=== PATIENT | female | born 1995 | race Caucasian/White ===

== ENCOUNTER 2018-10-01 12:24 | Emergency (ER) | payer BC, MEDICAID, OTHER ==
--- NOTE | 2018-10-01 12:31 | EDM.PDOC ---
ED HPI GENERAL MEDICAL PROBLEM - General Chief Complaint: Genitourinary Problem Stated Complaint: POSSIBLE OVARIAN CYST?? Time Seen by Provider: 10/01/18 12:25 Source of Information: Reports: Patient History Limitations: Reports: No Limitations - History of Present Illness INITIAL COMMENTS - FREE TEXT/NARRATIVE: 23 YO WF presents to ER with a 4 day history of left lower quadrant pain with radiation to suprapubic and now right lower quadrant which began today. Pt thinks she has a ruptured ovarian cyst. Pt reports she is currently on oral contraceptives but stopped for a few days and had a menstrual period. Pt reports she is sexually active but denies any vaginal discharge or discomfort with intercourse. Pt denies dysuria but reports increased urine frequency without urgency. Pt has had UTIs in the past but states this feels different. Pt reports she has had a good appetite with some nausea without vomiting. Pt denies diarrhea or constipation. Pt reports no fever/chills and no back pain. Pt reports she doesn't want blood work at this time and would like to follow up in clinic for pelvic U/S tomorrow with Dr Lissy Suarez. Onset Date: 09/28/18 Duration: Day(s): (4) Location: Reports: Pelvis Quality: Reports: Pressure, Stabbing Severity: Mild Improves with: Reports: Rest Worsens with: Reports: Movement Associated Symptoms: Reports: Nausea/Vomiting. Denies: Chest Pain, Fever/Chills , Rash, Shortness of Breath, Weakness - Related Data Allergies Allergy/AdvReac Type Severity Reaction Status Date / Time amoxicillin Allergy Hives Verified 10/01/18 12:41 Home Meds: Home Meds Norgestimate-Ethinyl Estradiol [[place]-Linyah 28 Tablet] 1 tab PO DAILY 10/01/18 [ History] ED ROS GENERAL - Review of Systems Review Of Systems: See Below Constitutional: Reports: No Symptoms HEENT: Reports: No Symptoms Respiratory: Reports: No Symptoms Cardiovascular: Reports: No Symptoms Endocrine: Reports: No Symptoms : Reports: Frequency, Irregular Menses. Denies: Dysuria, Flank Pain, Hematuria, Urgency Musculoskeletal: Reports: No Symptoms Skin: Reports: No Symptoms Neurological: Reports: No Symptoms Psychiatric: Reports: No Symptoms Hematologic/Lymphatic: Reports: No Symptoms Immunologic: Reports: No Symptoms ED EXAM, RENAL/ - Physical Exam Exam: See Below Exam Limited By: No Limitations General Appearance: Alert, WD/WN, No Apparent Distress Throat/Mouth: Normal Inspection, Normal Lips, Normal Teeth, Normal Gums, Normal Oropharynx, Normal Voice, No Airway Compromise Head: Atraumatic, Normocephalic Neck: Normal Inspection, Supple, Non-Tender, Full Range of Motion Respiratory/Chest: No Respiratory Distress, Lungs Clear, Normal Breath Sounds, No Accessory Muscle Use, Chest Non-Tender Cardiovascular: Normal Peripheral Pulses, Regular Rate, Rhythm, No Edema, No Gallop, No JVD, No Murmur, No Rub GI/Abdominal: Normal Bowel Sounds, Soft, No Organomegaly, No Distention, No Abnormal Bruit, No Mass, Tender (lower abdomen- LLQ>RLQ) (Female) Exam: Deferred (patient request) Back Exam: Normal Inspection, Full Range of Motion, NT Extremities: Normal Inspection, Normal Range of Motion, Non-Tender, Normal Capillary Refill, No Pedal Edema Neurological: Alert, Oriented, CN II-XII Intact, Normal Cognition, Normal Gait, Normal Reflexes, No Motor/Sensory Deficits Psychiatric: Normal Affect, Normal Mood Skin Exam: Warm, Dry, Intact, Normal Color, No Rash Lymphatic: No Adenopathy Course - Vital Signs Last Recorded V/S: Last Vital Signs Temp 36.6 C 10/01/18 12:41 Pulse 92 10/01/18 12:41 Resp 16 10/01/18 12:41 BP 133/90 10/01/18 12:41 Pulse Ox 97 10/01/18 12:41 - Orders/Labs/Meds Orders: Active Orders 24 hr Category Date Time Status UA W/MICROSCOPIC [URIN] Stat Lab 10/01/18 12:30 Ordered Labs: Laboratory Tests 10/01/18 10/01/18 Range/Units 12:30 12:30 Urine Color Yellow (YELLOW) Urine Appearance Clear (CLEAR) Urine pH 7.0 (5.0-9.0) Ur Specific [place] 1.010 (1.005-1.030) Urine Protein Negative (NEGATIVE) mg/dL Urine Glucose (UA) Negative (NEGATIVE) mg/dL Urine Ketones Negative (NEGATIVE) mg/dL Urine Occult Blood Trace-intact H (NEGATIVE) Urine Nitrite Negative (NEGATIVE) Urine Bilirubin Negative (NEGATIVE) Urine Urobilinogen 0.2 (0.2-1.0) E.U./dL Ur Leukocyte Esterase Negative (NEGATIVE) Urine HCG, Qual Negative (NEGATIVE) Meds: Medications Discontinued Medications Generic Name Dose Route Start Last Admin Trade Name Kory PRN Reason Stop Dose Admin Ibuprofen 800 mg 10/01/18 12:45 Motrin PO 10/01/18 12:46 ONETIME ONE Departure - Departure Time of Disposition: 13:01 Disposition: Home, Self-Care 01 Condition: Good Clinical Impression: Pelvic pain - Discharge Information Instructions: Pelvic Pain, Female, [id number] Forms: ED Department Discharge Additional Instructions: 1. discharge home 2. discussed management with patient- motrin 600mg PO Q^ x 5 days, follow up in clinic for pelvic ultrasound tomorrow, pt to return to ER for worsening symptoms 3. offered pelvic exam, blood work and imaging if abnormal labs- Pt would like to defer and follow up in clinic for further evaluation and treatment - My Orders Last 24 Hours: My Active Orders 10/01/18 12:30 UA W/MICROSCOPIC [URIN] Stat - Assessment/Plan Last 24 Hours: My Active Orders 10/01/18 12:30 UA W/MICROSCOPIC [URIN] Stat Assessment:: 1. Pelvic pain- suspect ruptured ovarian cyst Plan: 1. discharge home 2. discussed management with patient- motrin 600mg PO Q^ x 5 days, follow up in clinic for pelvic ultrasound tomorrow, pt to return to ER for worsening symptoms 3. offered pelvic exam, blood work and imaging if abnormal labs- Pt would like to defer and follow up in clinic for further evaluation and treatment
[2018-10-01] MEDS: Ibuprofen 400 MG Tab PO ONE (12:54)
== END 2018-10-01 13:05 | disposition home or self-care (01) ==
LOC: KA.ED 12:24
DX: R10.2 Pelvic and perineal pain (principal); Z88.1 Allergy status to other antibiotic agents
CPT/HCPCS: 81001; 81025; 99284; A9270-GY

== ENCOUNTER 2019-08-01 21:00 | Emergency (ER) | payer BC, MEDICAID ==
[2019-08-01] MEDS ORDERED: predniSONE 20 MG Tab PO ONE (21:53)
[2019-08-01] MEDS ORDERED: predniSONE 20 MG Tab ONE (21:54)
--- NOTE | 2019-08-01 22:00 | EDM.PDOC ---
ED HPI GENERAL MEDICAL PROBLEM - General Chief Complaint: General Stated Complaint: allergic reaction Time Seen by Provider: 08/01/19 21:35 Source of Information: Reports: Patient History Limitations: Reports: No Limitations - History of Present Illness INITIAL COMMENTS - FREE TEXT/NARRATIVE: Patient presents with itchy rash on head and neck for 5 days. It has been stable without worsening or progression. No tongue or throat swelling or dyspnea. 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 She has started wearing gloves and trying to reduce exposure to it. Her ears are the worst and she has tried Xyzal at home once or twice at night but it isn't helping through the day. - Related Data Allergies Allergy/AdvReac Type Severity Reaction Status Date / Time amoxicillin Allergy Hives Verified 08/01/19 21:21 Home Meds: Home Meds norgestimate-ethinyl estradioL [[place]-Linyah 28 Tablet] 1 tab PO DAILY 10/01/18 [ History] Past Medical History Musculoskeletal History: Reports: Other (See Below) Other Musculoskeletal History: torn MCL/PCL no surgery Neurological History: Reports: Concussion, Other (See Below) Other Neuro History: concussions x 4. - Infectious Disease History Infectious Disease History: Reports: Chicken Pox - Past Surgical History Head Surgeries/Procedures: Reports: None Neurological Surgical History: Reports: None Musculoskeletal Surgical History: Reports: None Social & Family History - Family History Family Medical History: Noncontributory - Tobacco Use Smoking Status *Q: Never Smoker Second Hand Smoke Exposure: No ED ROS GENERAL - Review of Systems Review Of Systems: See Below Constitutional: Denies: Fever, Chills, Malaise, Weakness HEENT: Denies: Ear Pain, Throat Pain, Throat Swelling, Vision Change Respiratory: Denies: Shortness of Breath, Cough Cardiovascular: Denies: Chest Pain, Lightheadedness, Syncope Endocrine: Denies: Fatigue GI/Abdominal: Denies: Abdominal Pain, Vomiting : Denies: Dysuria, Flank Pain Musculoskeletal: Denies: Neck Pain, Shoulder Pain, Arm Pain, Back Pain, Hand Pain Skin: Denies: Cyanosis, Jaundice, Mottled, Pallor, Diaphoresis Neurological: Denies: Confusion, Dizziness, Headache, Seizure, Syncope, Trouble Speaking, Difficulty Walking Psychiatric: Denies: Agitation, Anxiety, Confusion ED EXAM, GENERAL - Physical Exam Exam: See Below Exam Limited By: No Limitations General Appearance: Alert, WD/WN, No Apparent Distress Eye Exam: Bilateral Eye: EOMI, Normal Inspection, PERRL Ears: Normal Canal, Hearing Grossly Normal, Normal TMs Ear Exam: Bilateral Ear: Erythema (external ear), Swelling (external ear) Nose: Normal Inspection, No Blood Throat/Mouth: Normal Inspection, Normal Lips, Normal Teeth, Normal Gums, Normal Oropharynx, Normal Voice, No Airway Compromise Head: Atraumatic, Normocephalic Neck: Supple, Non-Tender, Full Range of Motion, Other (mild erythema of neck and upper chest) Respiratory/Chest: No Respiratory Distress, Lungs Clear, Normal Breath Sounds, No Accessory Muscle Use Cardiovascular: Regular Rate, Rhythm, No Murmur Back Exam: Normal Inspection, Full Range of Motion Extremities: Normal Inspection, Normal Range of Motion, Non-Tender. No: Redness Neurological: Alert, Oriented, Normal Cognition, No Motor/Sensory Deficits Psychiatric: Normal Affect, Normal Mood Skin Exam: Warm, Dry, Intact Course - Vital Signs Last Recorded V/S: Last Vital Signs Temp 96.9 F 08/01/19 21:25 Pulse 78 08/01/19 21:25 Resp 18 08/01/19 21:25 BP 132/81 08/01/19 21:25 Pulse Ox 99 08/01/19 21:25 - Re-Assessments/Exams Free Text/Narrative Re-Assessment/Exam: 08/01/19 22:01 We discussed findings and treatment options. Benadryl should help a little more but should take at night to avoid drowsiness while working. The Xyzal should be okay concurrently with Benadryl for a few days but I advised not longer. Will try prednisone as well to reduce swelling, inflammation and itch. Patient given first dose of prednisone in ER but will take Benadryl at home since she is driving. Discharged in stable condition. Departure - Departure Time of Disposition: 21:56 Disposition: Home, Self-Care 01 Condition: Good Clinical Impression: Allergic rash present on examination - Discharge Information Additional Instructions: 1. Drink 8 cups of water daily. 2. Take Benadryl 25 mg at night. 3. You can continue the Xyzal but try it in the morning. 4. Take the prednisone daily for 5 days. 5. Try to avoid the likely allergens as much as possible. 6. Follow up with your PCP if this persists or recheck CHANG if worsening. Sepsis Event Note - Evaluation Sepsis Screening Result: No Definite Risk - Focused Exam Vital Signs: Vital Signs Temp Pulse Resp BP Pulse Ox 08/01/19 21:25 96.9 F 78 18 132/81 99 Date Exam was Performed: 08/01/19 Time Exam was Performed: 21:53
== END 2019-08-01 22:05 | disposition home or self-care (01) ==
LOC: KA.ED 21:00
DX: R21 Rash and other nonspecific skin eruption (principal); Z88.1 Allergy status to other antibiotic agents
CPT/HCPCS: 99282; A9270-GY

== ENCOUNTER 2021-04-05 08:55 | Emergency (ER) | payer BC ==
[2021-04-05] MEDS ORDERED: Cefdinir 300 MG Cap PO ONE (09:42)
--- NOTE | 2021-04-05 09:44 | EDM.PDOC ---
ED HPI GENERAL MEDICAL PROBLEM - General Chief Complaint: General Stated Complaint: NASAL STUFFINESS Time Seen by Provider: 04/05/21 09:28 Source of Information: Reports: Patient History Limitations: Reports: No Limitations - History of Present Illness INITIAL COMMENTS - FREE TEXT/NARRATIVE: Patient presents with pain in right side of throat that started a couple days ago but got worse last night. She denies fever, cough, earache, sinus pressure. She can't take amoxicillin, gets hives. Throat Pain Score (Numeric/FACES): 5 - Related Data Allergies Allergy/AdvReac Type Severity Reaction Status Date / Time amoxicillin Allergy Hives Verified 04/05/21 09:15 Home Meds: Home Meds norgestimate-ethinyl estradioL [[place]-Linyah 28 Tablet] 1 tab PO DAILY 10/01/18 [History] Past Medical History Musculoskeletal History: Reports: Other (See Below) Other Musculoskeletal History: torn MCL/PCL no surgery Neurological History: Reports: Concussion, Other (See Below) Other Neuro History: concussions x 4. - Infectious Disease History Infectious Disease History: Reports: Chicken Pox - Past Surgical History Head Surgeries/Procedures: Reports: None Neurological Surgical History: Reports: None Musculoskeletal Surgical History: Reports: None Social & Family History - Family History Family Medical History: No Pertinent Family History - Tobacco Use Tobacco Use Status *Q: Never Tobacco User - Caffeine Use Caffeine Use: Reports: Coffee - Recreational Drug Use Recreational Drug Use: No ED ROS GENERAL - Review of Systems Review Of Systems: Comprehensive ROS is negative, except as noted in HPI. ED EXAM, GENERAL - Physical Exam Exam: See Below Exam Limited By: No Limitations General Appearance: Alert, WD/WN, No Apparent Distress Eye Exam: Bilateral Eye: EOMI, Normal Inspection, PERRL Ears: Normal External Exam, Normal Canal, Hearing Grossly Normal, Normal TMs Nose: Normal Inspection, No Blood Throat/Mouth: Normal Lips, Normal Voice, No Airway Compromise, Other (Right pharynx/tonsil is inflamed with a 1 cm white pocket visible. No significant swelling or assymetry.) Neck: Full Range of Motion, Lymphadenopathy (R) (tender to palpate). No: Lymphadenopathy (L) Respiratory/Chest: No Respiratory Distress, Lungs Clear, Normal Breath Sounds, No Accessory Muscle Use Cardiovascular: Regular Rate, Rhythm, No Murmur GI/Abdominal: Soft, Non-Tender, No Organomegaly, No Distention Back Exam: Normal Inspection, Full Range of Motion. No: CVA Tenderness (L), CVA Tenderness (R) Extremities: Normal Inspection, Normal Range of Motion Neurological: Alert, Oriented, Normal Cognition, No Motor/Sensory Deficits Psychiatric: Normal Affect, Normal Mood Skin Exam: Warm, Dry, Intact, Normal Color, No Rash Course - Vital Signs Last Recorded V/S: Last Vital Signs Temp 97.1 F 04/05/21 09:00 Pulse 105 H 04/05/21 09:00 Resp 18 04/05/21 09:00 BP 148/90 H 04/05/21 09:00 Pulse Ox 99 04/05/21 09:00 - Orders/Labs/Meds Orders: Active Orders 24 hr Category Date Time Status STREP SCRN A RAPID W CULT CONF [RM] Stat Lab 04/05/21 09:18 Ordered Meds: Medications Discontinued Medications Generic Name Dose Route Start Last Admin Trade Name Freq PRN Reason Stop Dose Admin Cefdinir 600 mg 04/05/21 09:42 Cefdinir 300 Mg Cap PO 04/05/21 09:43 ONETIME ONE - Re-Assessments/Exams Free Text/Narrative Re-Assessment/Exam: 04/05/21 09:53 Rapid strep is negative but this has the appearance of a bacterial infection so I am treating with Cefdinir 300 mg po bid x 10 days. First 2 dose given in ER. Discussed findings and treatment plan with patient. She is discharged to home in stable condition. Departure - Departure Time of Disposition: 09:51 Disposition: Home, Self-Care 01 Condition: Good Clinical Impression: Tonsillitis Pharyngitis Qualifiers: Pharyngitis/tonsillitis etiology: unspecified etiology Qualified Code(s): J02.9 - Acute pharyngitis, unspecified - Discharge Information Instructions: Pharyngitis, [id number] Referrals: PCP,Unknown [Primary Care Provider] - Forms: ED Department Discharge Additional Instructions: Drink 8 cups of water daily. Take the antibiotic as directed. Follow up with PCP if not resolved in a week. Recheck sooner in clinic or ER, if any worsening. Sepsis Event Note (ED) - Evaluation Sepsis Screening Result: No Definite Risk - Focused Exam Vital Signs: Vital Signs Temp Pulse Resp BP Pulse Ox 04/05/21 09:00 97.1 F 105 H 18 148/90 H 99 - My Orders Last 24 Hours: My Active Orders 04/05/21 09:18 STREP SCRN A RAPID W CULT CONF [RM] Stat - Assessment/Plan Last 24 Hours: My Active Orders 04/05/21 09:18 STREP SCRN A RAPID W CULT CONF [RM] Stat
== END 2021-04-05 10:10 | disposition home or self-care (01) ==
LOC: KA.ED 08:55
DX: J03.90 Acute tonsillitis, unspecified (principal); Z88.0 Allergy status to penicillin
CPT/HCPCS: 87081; 87430; 99283; A9270